=== PATIENT | female | born 1965 | race Caucasian/White ===

== ENCOUNTER 2016-12-28 01:19 | Emergency (ER) | payer OTHER ==
[~2016-12-28] VITALS: Ht 165.1 cm; Wt 104.5 kg
[~2016-12-28 01:19] MED LIST: AMBIEN10 M1 PO; ARTANE2 MG PO; ASPIR-TRIN325 M1 PO; BUSPAR30 MG PO; BUSPIRONE HCL30 MG PO; CIPRO500 MG PO; COGENTIN1 MG PO; COLACE100 MG PO; COZAAR25 MG PO; DEPAKOTE250 MG PO; DEPAKOTE500 MG PO; DIVALPROEX SOD500 MG PO; EAR WAX DROPS15 ML BOTH EARS; FLEXERIL10 MG PO; HALDOL2 MG PO; HYDROCHLOROTH12.5 M3 PO; IBUPROFEN800 MG PO; LOSARTAN POTASS25 MG PO; MELATONIN10 M1 PO; MINIPRESS1 MG PO; MOTRIN800 MG PO; OMEPRAZOLE40 M1 PO; PRAVASTATIN SOD40 MG PO; PRILOSEC40 MG PO; SEROQUEL300 MG PO; SINGULAIR10 MG PO; TOVIAZ4 MG PO; TRAZODONE HCL50 MG PO; VENTOLIN HFA18 GM IH; VISINE LONG LAS30 ML BOTH EYES; WELLBUTRIN SR200 MG PO; ZIPRASIDONE HCL80 MG PO
[2016-12-28 01:43] LABS: HEMATOCRIT 38.6 % (36.0-46.0); MCH 31.2 PG (29.0-34.0); MCHC 32.4 G/DL (30.0-36.0); MCV 96.3 FL (83-99); PLATELET COUNT 239 K/uL (156-360); RBC DIS.WIDTH-CV 12.2 % (11.8-14.6); RBC DIS.WIDTH-SD 43.4 % (39-53); RED BLOOD COUNT 4.01 M/uL (3.80-5.20); WHITE BLOOD COUNT 13.8 K/uL (4.1-10.2)
[2016-12-28 01:55] LABS: D-DIMER ELISA 0.41 mg/L FEU (< 0.57)
[2016-12-28 01:59] LABS: CHLORIDE 104 mEq/L (99-109); POTASSIUM 4.5 mEq/L (3.7-5.4); SODIUM 140 mEq/L (136-147)
[2016-12-28 02:00] LABS: GLUCOSE 129 mg/dL (70-99)
[2016-12-28 02:02] LABS: ANION GAP 12 MEQ/L (2-14)
[2016-12-28 02:04] LABS: GFR ESTIMATE (CALCULATED) > 59 mL/min/
[2016-12-28 02:05] LABS: UREA NITROGEN (BUN) 12 mg/dL (9-23)
[2016-12-28 02:10] LABS: TROP-I INTERPRETATION NEGATIVE; TROPONIN-I < 0.01 ng/mL (0.0-0.30)
[2016-12-28 04:24] LABS: TROP-I INTERPRETATION NEGATIVE; TROPONIN-I < 0.01 ng/mL (0.0-0.30)
[2016-12-28] MEDS ORDERED: PROVENTIL HFA6.7 GM IH (04:29)
[2016-12-28] MEDS ORDERED: PREDNISONE20 MG PO (04:31)
[2016-12-28 04:52] VITALS: BP 112/87
== END 2016-12-28 04:53 | disposition home or self-care (01) ==
LOC: EXP 01:19 → EME 01:19 → EXP 04:53
PROVIDERS: Emergency Medicine
DX: J20.9 Acute bronchitis, unspecified (principal); R07.9 Chest pain, unspecified; J45.909 Unspecified asthma, uncomplicated; Z87.891 Personal history of nicotine dependence
CPT/HCPCS: 71020; 80048; 83880; 84484; 85027; 85379; 93005; 94640; 99281; 99284; J1100